=== PATIENT | male | born 1960 | race Caucasian/White ===

== ENCOUNTER 2016-05-18 10:17 | Day surgery (SDC) | payer OTHER ==
[~2016-05-18] VITALS: Ht 162.6 cm; Wt 83.1 kg
[2016-05-18 10:53] VITALS: Ht 162.6 cm; Wt 83.1 kg
[2016-05-18] MEDS ORDERED: CHLO50TA15 PO (11:07)
[2016-05-18] MEDS ORDERED: SITA25TA3 PO (11:07)
[2016-05-18] MEDS ORDERED: GLIP-95 PO (11:07)
[2016-05-18] MEDS ORDERED: ATOR10TA65 PO (11:07)
[2016-05-18] MEDS ORDERED: METF-480 PO (11:07)
[2016-05-18] MEDS ORDERED: BENA40TA41 PO (11:07)
[2016-05-18 11:20] VITALS: BP 155/76; PULSE 65; RESP 9
[2016-05-18 11:47] VITALS: BP 141/78; PULSE 64; RESP 12
[2016-05-18] MEDS ORDERED: FENTAnyl 50 MCG/ML VIAL ONE (11:50)
[2016-05-18] MEDS ORDERED: MIDAZOLAM 1 MG/ML 2 ML INJ ONE ×2 (11:50)
--- NOTE | 2016-05-18 12:14 | GILP ---
DATE OF PROCEDURE: 05/18/2016 NAME OF PROCEDURE: Colonoscopy. SURGEON: Ivan Hawthorne MD PREOPERATIVE DIAGNOSIS: Screening colonoscopy. POSTOPERATIVE DIAGNOSES: 1. Colonoscopy all the way to the cecum. 2. Internal hemorrhoids. 3. No colon neoplasm was identified. INDICATION FOR THE PROCEDURE: Mr. Arcadio Herrera is a 56-year-old male patient who was scheduled fo r screening colonoscopy. The procedure and possible complications are well explained to the patient, he understood and consen isaias to the procedure. DESCRIPTION OF PROCEDURE: Under the influence of fentanyl and Versed, the colonoscope was carefully introduced in the rectum and under direct vision, it was advanced all the way to the cecum. FINDINGS: The patient had internal hemorrhoids. No colon neoplasm was identified. He tolerated the procedure very well and there was no complication from the procedures. At the end of the procedure, he was awake with stable vital signs and he was discharged home to the care of his family. IMPRESSION: 1. Colonoscopy all the way to the cecum. 2. Internal hemorrhoids. 3. No colon neoplasm was identified. PLAN: Next screening colonoscopy in 10 years. Dictated By: IVAN LOUIS/ELOY Conf#: [id number] DID#: [id number] CC: IVAN HAWTHORNE MD;*EndCC*
[2016-05-18 12:30] VITALS: BP 143/74; PULSE 60
== END 2016-05-18 13:22 | disposition home or self-care (01) ==
LOC: GIL 10:17
PROVIDERS: ATTEND Internal Medicine Gastroenterology
DX: Z12.11 Encounter for screening for malignant neoplasm of colon (principal); K64.8 Other hemorrhoids; I10 Essential (primary) hypertension; E11.9 Type 2 diabetes mellitus without complications
CPT/HCPCS: 45378; 82962; J2250; J3010; Z7610

== ENCOUNTER 2017-04-06 11:05 | Emergency (ER) | END 2017-04-06 15:31 | disposition home or self-care (01) ==

== ENCOUNTER 2017-04-09 08:16 | Emergency (ER) | END 2017-04-09 11:30 | disposition home or self-care (01) ==